=== PATIENT | male | born 2000 | race African-American/Black ===

== ENCOUNTER 2019-10-20 19:17 | Emergency (ER) | payer OTHER ==
[~2019-10-20] VITALS: Ht 182.9 cm; Wt 68.0 kg
[2019-10-20] MEDS ORDERED: ALBUTEROL FS 2.5 MG/3 ML VIAL.NEB ONE (19:46)
[2019-10-20] MEDS ORDERED: IPRATROPIUM NEB FS 0.5 MG/2.5 ML AMPUL.NEB ONE (19:46)
[2019-10-20] MEDS ORDERED: predniSONE 20 MG TABLET PO ONE (20:00)
[2019-10-20] MEDS ORDERED: ALBUTEROL FS 2.5 MG/3 ML VIAL.NEB NEB ONE (20:00)
[2019-10-20] MEDS ORDERED: IBUPROFEN 600 MG TABLET PO ONE ×2 (20:00→20:06)
[2019-10-20] MEDS ORDERED: IPRATROPIUM NEB FS 0.5 MG/2.5 ML AMPUL.NEB NEB ONE (20:00)
[2019-10-20] MEDS ORDERED: predniSONE 20 MG TABLET ONE (20:06)
--- NOTE | 2019-10-20 20:09 | NUR ---
PT MEDICATED ORDERED.
--- NOTE | 2019-10-20 21:03 | NUR ---
PT OK TO DISCHARGE PER SEUN MAGANA. Patient discharged to home in stable condition. Written and verbal after care instructions given. Patient verbalizes understanding of instruction.Patient is awake and alert to self, day, and place. PT ambulatory with a steady gait
[2019-10-20 21:05] VITALS: BP 132/72
== END 2019-10-20 21:05 | disposition home or self-care (01) ==
LOC: ER 19:19
DX: J20.9 Acute bronchitis, unspecified (principal); F17.200 Nicotine dependence, unspecified, uncomplicated
CPT/HCPCS: 71045; 94640; 99283; J7512